=== PATIENT | male | born 1970 | race African-American/Black ===

== ENCOUNTER 2019-11-01 20:30 | Inpatient (IN) | payer MEDICARE, MEDICAID ==
[~2019-11-01] VITALS: Ht 182.9 cm; Wt 60.3 kg
[2019-11-01 20:00] VITALS: BP 128/86
[2019-11-01 20:45] VITALS: BP 128/86
[2019-11-01] MEDS ORDERED: MORPHINE SULFATE 2 MG/ML CPJ (NOT FOR IM USE) IV PRN (22:30)
[2019-11-01] MEDS ORDERED: HYDROCODONE/ACETAMINOPHEN 5/325MG TABLET PO PRN (22:30)
[2019-11-01] MEDS ORDERED: MAGNESIUM/ALUMINUM HYDROXIDE/SIMETHICONE 30ML UDC PO PRN (22:30)
[2019-11-01] MEDS ORDERED: CLONIDINE 0.1MG TABLET PO PRN (22:30)
[2019-11-01] MEDS ORDERED: ACETAMINOPHEN 325MG TABLET PO PRN (22:30)
[2019-11-01] MEDS ORDERED: GUAIFENESIN 200MG/10ML SUGAR FREE UDC PO PRN (22:30)
[2019-11-01] MEDS ORDERED: DOCUSATE SODIUM 100MG CAPSULE PO PRN (22:30)
[2019-11-01] MEDS ORDERED: ONDANSETRON HCL 4MG/2ML INJ IV PRN (22:30)
[2019-11-01] MEDS ORDERED: IPRATROPIUM/ALBUTEROL 0.5-3(2.5)MG/3ML NEB NEB PRN (22:30)
[2019-11-01] MEDS: AMLODIPINE 10MG TABLET PO SCH (23:40)
[2019-11-02] VITALS: BP 142/88
[2019-11-02] MEDS ORDERED: DOLU50TA MT (03:45)
[2019-11-02] MEDS ORDERED: AMLO10TA4 MT (03:45)
[2019-11-02] MEDS ORDERED: LISI10TA5 MT (03:45)
[2019-11-02] MEDS ORDERED: CARV3.1242 MT (03:45)
[2019-11-02] MEDS ORDERED: DARU1TAB MT (03:45)
[2019-11-02 04:00] VITALS: BP 139/94
[2019-11-02 06:26] LABS: BASOPHILS % 1.1 % (0.0-2.0); EOSINOPHILS % 12.3 % (0.0-5.0); HEMATOCRIT. 26.1 % (42.0-52.0); HEMOGLOBIN. 8.6 g/dL (14.0-18.0); LYMPHOCYTES % 23.3 % (20.0-50.0); MEAN CORPUSCULAR HEMOGLOBIN 30.1 pg (28.0-32.0); MEAN CORPUSCULAR VOLUME 91.2 fL (80.0-94.0); MEAN PLATELET VOLUME 9.1 fl (7.4-10.4); MONOCYTES % 13.6 % (2.0-8.0); NEUTROPHILS % 49.7 % (40.0-76.0); PLATELET 133 x1000/uL (130-400); RED BLOOD CELL COUNT 2.86 mill/uL (4.7-6.1); RED CELL DISTRIBUTION WIDTH 16.2 % (11.6-14.6)
[2019-11-02 06:35] LABS: CHLORIDE 105 mEq/L (98-107)
[2019-11-02 06:47] LABS: LDL CHOLESTEROL 44 mg/dL (5-100)
[2019-11-02 06:48] LABS: HDL CHOLESTEROL 87 mg/dL (40-59)
[2019-11-02 08:00] VITALS: BP 150/85
[2019-11-02] MEDS: ENOXAPARIN 30MG/0.3ML SYR SUBCUT SCH ×2 (08:00→09:16)
[2019-11-02] MEDS: AMLODIPINE 10MG TABLET PO SCH (09:16)
[2019-11-02] MEDS ORDERED: AMLODIPINE 10MG TABLET PO SCH (11:15)
[2019-11-02 12:00] VITALS: BP 137/92
[2019-11-02] MEDS: LISINOPRIL 10MG TABLET PO SCH (12:26)
[2019-11-02 16:00] VITALS: BP 131/83
[2019-11-02 20:00] VITALS: BP 141/89
[2019-11-02 20:55] LABS: CLARITY URINE CLEAR (CLEAR); COLOR URINE YELLOW (YELLOW); KETONES URINE NEGATIVE (NEGATIVE); LEUKOCYTE ESTERASE URINE TRACE (NEGATIVE); NITRITE URINE NEGATIVE (NEGATIVE); OCCULT BLOOD URINE TRACE (NEGATIVE); PH URINE >=9.0 (4.5-8.0); PROTEIN URINE 3+ (NEGATIVE); SPECIFIC GRAVITY URINE 1.013 (1.005-1.030); UROBILINOGEN URINE 0.2 E.U./dL (0.2-1.0)
[2019-11-02] MEDS: CARVEDILOL 3.125 MG TABLET PO SCH (21:03)
[2019-11-02] MEDS ORDERED: ALTEPLASE 2MG/VIAL ITC NR (23:30)
[2019-11-03] VITALS (7 sets, daily range): BP systolic 137–154; BP diastolic 82–91
[2019-11-03] MEDS: ENOXAPARIN 30MG/0.3ML SYR SUBCUT SCH (08:00)
[2019-11-03] MEDS: AMLODIPINE 10MG TABLET PO SCH (09:09)
[2019-11-03] MEDS: CARVEDILOL 3.125 MG TABLET PO SCH ×2 (09:09→21:29)
[2019-11-03] MEDS: LISINOPRIL 10MG TABLET PO SCH (09:09)
[2019-11-03] MEDS ORDERED: AZITHROMYCIN 250 MG TABLET PO SCH (10:00)
[2019-11-03] MEDS ORDERED: SULFAMETHOXAZOLE/TRIMETHOPRIM 800/160MG TABLET PO SCH (10:00)
[2019-11-03] MEDS ORDERED: SODIUM POLYSTYRENE SULFONATE 15 G/60 ML BOT PO NR (12:45)
[2019-11-03 16:36] LABS: BASOPHILS % 1.2 % (0.0-2.0); EOSINOPHILS % 12.6 % (0.0-5.0); HEMATOCRIT. 21.1 % (42.0-52.0); LYMPHOCYTES % 29.3 % (20.0-50.0); MEAN CORPUSCULAR HEMOGLOBIN 29.8 pg (28.0-32.0); MEAN CORPUSCULAR VOLUME 90.7 fL (80.0-94.0); MEAN PLATELET VOLUME 9.2 fl (7.4-10.4); MONOCYTES % 11.1 % (2.0-8.0); NEUTROPHILS % 45.8 % (40.0-76.0); PLATELET 121 x1000/uL (130-400); RED BLOOD CELL COUNT 2.33 mill/uL (4.7-6.1); RED CELL DISTRIBUTION WIDTH 15.8 % (11.6-14.6)
[2019-11-03 16:46] LABS: HEMOGLOBIN. 6.9 g/dL (14.0-18.0)
== END 2019-11-04 01:18 | disposition left against medical advice (07) | DRG 314 ==
LOC: 6EST 20:30
PROVIDERS: ADMIT Hospitalist; ATTEND Hospitalist
PROC: 3E03317 Introduction of Other Thrombolytic into Peripheral Vein, Percutaneous Approach (ICD-10-PCS; principal; 2019-11-03)
PROC: 5A1D70Z Performance of Urinary Filtration, Intermittent, Less than 6 Hours Per Day (ICD-10-PCS; 2019-11-03)
DX: T82.868A Thrombosis due to vascular prosthetic devices, implants and grafts, initial encounter (principal); I50.33 Acute on chronic diastolic (congestive) heart failure; N18.6 End stage renal disease; E43 Unspecified severe protein-calorie malnutrition; J96.00 Acute respiratory failure, unspecified whether with hypoxia or hypercapnia; I13.2 Hypertensive heart and chronic kidney disease with heart failure and with stage 5 chronic kidney disease, or end stage renal disease; Z68.1 Body mass index [BMI] 19.9 or less, adult; Y84.1 Kidney dialysis as the cause of abnormal reaction of the patient, or of later complication, without mention of misadventure at the time of the procedure; E87.5 Hyperkalemia; D63.8 Anemia in other chronic diseases classified elsewhere; Z79.899 Other long term (current) drug therapy; Z99.2 Dependence on renal dialysis; Z88.8 Allergy status to other drugs, medicaments and biological substances; Y92.89 Other specified places as the place of occurrence of the external cause
CPT/HCPCS: 36415; 71046; 80048; 80053; 80061; 81003; 85025; 86359; 86360; 93306; 93970; J1650; J2405; J2997